=== PATIENT | female | born 1975 | race Caucasian/White ===

== ENCOUNTER → 2021-12-15 | Day surgery (SDC) | payer OTHER ==
[~2021-12-15] VITALS: Ht 157.5 cm; Wt 82.9 kg
[~2021-12-15] MED LIST: BRIN20TA PO; BRINTELLIX10 MG PO; BUSPIRONE HCL30 MG PO; CLONAZEPAM 0.50.5 MG PO; CLONAZEPAM0.5 MG OP; COLACE100 MG PO; HYDRALAZINE25 MG PO; MOTRIN600 MG PO; ONDANSETRON ODT4 MG PO; OXYCODONE-ACET1 EAC1 PO; PERCOCET 5-3251 EACH PO; ZOCOR20 MG PO; [UNRECOGNIZED DRUG - OTHER] PO; [UNRECOGNIZED DRUG - OTHER] PO
[2021-12-15 08:23] LABS: HCG (URINE) SCREEN NEGATIVE (NEGATIVE)
[2021-12-15 08:36] LABS: BASOPHIL 0.8 % (0-2); EOSINOPHIL 8.3 % (0-5); HCT 29.4 % (37.0-47.0); HGB 9.1 g/dl (12.5-16.0); LYMPHOCYTE 44.9 % (15-48); MCV 74.2 fL (78.0-100.0); MONOCYTE 9.9 % (0-12); MPV 9.8 fL (6.0-9.5); NEUTROPHIL 35.9 % (41-80); NRBC 0; PLT 446 K/uL (150-400); RBC 3.96 M/uL (4.20-5.40); RDW 17.4 % (11.5-14.0); WBC 5.2 K/uL (4.0-10.5)
[2021-12-15 13:37] LABS: BILIRUBIN NEGATIVE (NEGATIVE); BLOOD 3+ Ery/uL (NEGATIVE); CLARITY CLEAR (CLEAR); COLOR YELLOW (YELLOW); GLUCOSE (U) NORMAL (NORMAL); LEUKOCYTES NEGATIVE Leu/uL (NEGATIVE); NITRITE POSITIVE (NEGATIVE); PROTEIN TRACE (LOW) mg/dL (NEGATIVE); SPECIFIC GRAVITY 1.015 (1.001-1.030); UROBILINOGEN 0.2 mg/dL (0.2-1.0); pH 5.5 (5.0-9.0)
[2021-12-15 13:49] LABS: AMORPHOUS URATES CRYSTALS TRACE; BACTERIA 1+; URINARY RBC 20-50; URINARY WBC RARE
== END | disposition home or self-care (01) ==
LOC: FAS 07:51
PROVIDERS: Obstetrics & Gynecology
DX: N72 Inflammatory disease of cervix uteri (principal); N80.0 Endometriosis of uterus; D25.9 Leiomyoma of uterus, unspecified; N83.8 Other noninflammatory disorders of ovary, fallopian tube and broad ligament; D27.1 Benign neoplasm of left ovary; N32.89 Other specified disorders of bladder; E66.01 Morbid (severe) obesity due to excess calories; Z88.0 Allergy status to penicillin
CPT/HCPCS: 36415; 81001; 84703; 85025; 86850; 86900; 86901; 93005; J1100; J1170; J1580; J1885; J2250; J2405; J2704; J2765; J3010; J7120

== ENCOUNTER 2021-12-19 16:38 | Emergency (ER) | payer OTHER | END 2021-12-19 19:41 | disposition home or self-care (01) | LOC: FER 16:38 | DX: N36.8 Other specified disorders of urethra (principal); X58.XXXA Exposure to other specified factors, initial encounter | CPT/HCPCS: 99283 ==

== ENCOUNTER 2021-12-31 15:07 | Inpatient (IN) | payer OTHER ==
[~2021-12-31] VITALS: Ht 157.5 cm; Wt 86.2 kg
[~2021-12-31 15:07] MED LIST changes: -CLONAZEPAM0.5 MG OP; +CLONAZEPAM0.5 MG PO
[2021-12-31 16:17] LABS: BASOPHIL 0.9 % (0-2); HCT 30.3 % (37.0-47.0); HGB 9.2 g/dl (12.5-16.0); LYMPHOCYTE 28.2 % (15-48); MCH 22.4 pg (25.0-31.0); MCHC 30.4 g/dL (32.0-36.0); MCV 73.7 fL (78.0-100.0); MONOCYTE 8.5 % (0-12); MPV 10.4 fL (6.0-9.5); NEUTROPHIL 57.3 % (41-80); NRBC 0; PLT 482 K/uL (150-400); RBC 4.11 M/uL (4.20-5.40); RDW 17.5 % (11.5-14.0); WBC 7.4 K/uL (4.0-10.5)
[2021-12-31 16:33] LABS: BILIRUBIN NEGATIVE (NEGATIVE); BLOOD 2+ Ery/uL (NEGATIVE); CLARITY CLEAR (CLEAR); COLOR AMBER (YELLOW); GLUCOSE (U) TRACE mg/dL (NORMAL); NITRITE POSITIVE (NEGATIVE); PROTEIN TRACE (LOW) mg/dL (NEGATIVE); SPECIFIC GRAVITY 1.025 (1.001-1.030)
[2021-12-31 16:34] LABS: LEUKOCYTES TRACE Leu/uL (NEGATIVE)
[2021-12-31 16:36] LABS: BACTERIA TRACE
[2021-12-31 16:37] LABS: BUN/CREAT RATIO (CALC) 15.5 RATIO; CREATININE 0.84 mg/dL (0.51-0.95)
[2022-01-01] MEDS ORDERED: PRENATAL GUMMI1 EACH PO (01:30)
[2022-01-01] MEDS ORDERED: ATARAX25 MG PO (01:32)
[2022-01-01 05:55] LABS: HCT 26.4 % (37.0-47.0); MCH 22.6 pg (25.0-31.0); MCHC 30.3 g/dL (32.0-36.0); MCV 74.6 fL (78.0-100.0); MPV 9.8 fL (6.0-9.5); RBC 3.54 M/uL (4.20-5.40); RDW 17.4 % (11.5-14.0); RETICULOCYTE COUNT 1.1 % (1.0-2.0); WBC 7.8 K/uL (4.0-10.5)
[2022-01-01 06:33] LABS: IRON % SATURATION 4.4 %SAT (20-50)
[2022-01-01 06:46] LABS: BUN/CREAT RATIO (CALC) 17.7 RATIO; CREATININE 0.79 mg/dL (0.51-0.95); POTASSIUM 3.7 mmol/L (3.5-5.1)
[2022-01-02 06:44] LABS: HCT 26.2 % (37.0-47.0); HGB 7.9 g/dl (12.5-16.0); MCH 22.2 pg (25.0-31.0); MCHC 30.2 g/dL (32.0-36.0); MCV 73.6 fL (78.0-100.0); RBC 3.56 M/uL (4.20-5.40); RDW 17.2 % (11.5-14.0); WBC 6.7 K/uL (4.0-10.5)
[2022-01-02 07:03] LABS: BUN/CREAT RATIO (CALC) 17.9 RATIO; CREATININE 0.84 mg/dL (0.51-0.95); POTASSIUM 3.4 mmol/L (3.5-5.1)
[2022-01-03 06:51] LABS: HGB 7.6 g/dl (12.5-16.0); MCH 22.2 pg (25.0-31.0); MCHC 30.4 g/dL (32.0-36.0); MCV 73.1 fL (78.0-100.0); MPV 9.9 fL (6.0-9.5); RBC 3.42 M/uL (4.20-5.40); RDW 17.5 % (11.5-14.0); WBC 7.9 K/uL (4.0-10.5)
[2022-01-03 07:11] LABS: BUN/CREAT RATIO (CALC) 12.3 RATIO; CREATININE 1.14 mg/dL (0.51-0.95); POTASSIUM 3.3 mmol/L (3.5-5.1)
[2022-01-03] MEDS ORDERED: [UNRECOGNIZED DRUG - SUPPLY] UR (08:14)
[2022-01-04] MEDS ORDERED: HYDROCODON-ACE1 EAC6 PO (08:31)
[2022-01-04] MEDS ORDERED: DITROPAN5 MG PO (08:31)
[2022-01-04] MEDS ORDERED: ONDANSETRON ODT4 MG PO (08:35)
== END 2022-01-04 11:26 | disposition home or self-care (01) | DRG 699 ==
LOC: FER 15:07 → FMS 21:54
PROVIDERS: Nurse Practitioner Acute Care; Nurse Practitioner Family; ADMIT Family Medicine
DX: T83.511A Infection and inflammatory reaction due to indwelling urethral catheter, initial encounter (principal); N30.01 Acute cystitis with hematuria; F41.1 Generalized anxiety disorder; D50.9 Iron deficiency anemia, unspecified; K21.9 Gastro-esophageal reflux disease without esophagitis; F32.A Depression, unspecified; E66.9 Obesity, unspecified; Y83.8 Other surgical procedures as the cause of abnormal reaction of the patient, or of later complication, without mention of misadventure at the time of the procedure; Z90.710 Acquired absence of both cervix and uterus; Z90.721 Acquired absence of ovaries, unilateral; Z90.49 Acquired absence of other specified parts of digestive tract; Z82.49 Family history of ischemic heart disease and other diseases of the circulatory system; Z83.3 Family history of diabetes mellitus; Z79.899 Other long term (current) drug therapy; Z68.34 Body mass index [BMI] 34.0-34.9, adult
CPT/HCPCS: 36415; 80048; 81001; 82271; 82607; 82728; 83540; 83550; 85025; 87088; G0378; J0696; J1170; J1885; J2270; J2405; J2916; J7030; J7120; Q9967